=== PATIENT | female | born 1985 | race Caucasian/White ===

== ENCOUNTER 2017-05-05 10:24 | Emergency (ER) | payer BC, OTHER ==
[2017-05-05 11:37] LABS: Urine Appearance Slightly Cloudy; Urine Bacteria TRACE; Urine Bilirubin Negative (NEGATIVE); Urine Blood Negative /ul (NEGATIVE); Urine Color Pale Yellow; Urine Ketone Negative (NEGATIVE); Urine Nitrite Negative (NEGATIVE); Urine Protein Negative (NEGATIVE); Urine RBC None Seen /hpf (0-5); Urine Specific Gravity <=1.005 SP.GR. (1.005-1.010); Urine Urobilinogen Normal (NORMAL); Urine WBC None Seen /hpf (0-5); Urine pH 6.5 pH (5.0-7.0)
[2017-05-05] MEDS ORDERED: SUCRALFATE 1 G/10 ML UDC PO ONE (11:37)
[2017-05-05] MEDS ORDERED: LIDOCAINE HCL 20 ML UDC PO ONE (11:37)
[2017-05-05] MEDS ORDERED: MAG HYDROX/ALUMINUM HYD/SIMETH 30 ML UDC PO ONE (11:37)
--- NOTE | 2017-05-05 11:42 | ERNOTE ---
Abdominal HPI - Narrative Date of Service: 05/05/17 - General Chief Complaint: Abdominal Pain Time Seen by Provider: 05/05/17 11:30 Source: patient Exam Limitations: no limitations - Immun/Allergies/Home Medications Immunizatons: IMMUNIZATION HX Immunizations Up to Date Yes History of Influenza Vaccine No Hx Pneumococcal Vaccination No Allergies/Adverse Reactions: Allergies ciprofloxacin [From Cipro] Allergy (Severe, Verified 05/05/17 10:53) Anaphylaxis duloxetine [From Cymbalta] Adverse Reaction (Severe, Verified 05/05/17 10:53) Other Home Medications: HOME MEDICATIONS Desmopressin Acetate [Ddavp] 0.1 mg PO DAILY 05/05/17 [Last Taken Unknown] Florinef 05/05/17 [Last Taken Unknown] Lansoprazole/Amoxiciln/Clarith [Prevpac Patient Pack] 1 pkt PO BID #28 pkg 05/05 [Last Taken Unknown] Zantac 05/05/17 [Last Taken Unknown] Zyrtec 05/05/17 [Last Taken Unknown] - History of Present Illness Narrative: Pt. comes in with c/o mid upper epigastric pain intermittently for months that is worse after eating certain foods an at night and early am. Pt. states that the pain improves throughout the day. Pt. states that she has been taking zantac without relief and denies any fever, SOB, CP, NVD, constipation and states that LBM was today and it was normal for her. Review of Systems - Review of Systems Constitutional: Present: no symptoms reported. Absent: recent illness, fever, chills, weakness, fatigue, malaise EYE: Present: no symptoms reported ENT: Present: no symptoms reported Respiratory: Present: no symptoms reported. Absent: shortness of breath, cough , wheezing Cardiology: Present: no symptoms reported. Absent: chest pain, palpitations, edema Gastrointestinal/Abdominal: Present: abdominal pain. Absent: nausea, vomiting, diarrhea, eating less, drinking less Genitourinary: Present: no symptoms reported. Absent: frequency, decreased urinary output Musculoskeletal: Present: no symptoms reported. Absent: back pain, joint pain Skin: Present: no symptoms reported Neurological: Present: no symptoms reported. Absent: headache, dizziness/light- headedness Endocrine: Present: no symptoms reported All Other Systems: All systems neg except as marked - Patient's Past Medical History Patient History - Medical: No pertinent hx Patient History - Cancer: No Hx of Cancer Patient History - Other: None - Social History Living Situations: home Psych History: No pertinent hx Smoking Status: Never smoker Have you smoked in the past 12 months: No Do you dip or chew tobacco: No - Immunizations Immunizations Up to Date: Yes Hx Pneumococcal Vaccination: No History of Influenza Vaccine: No Physical Exam - Physical Exam General Appearance: Present: wd/wn, alert, no apparent distress Head Exam: Present: normal inspection, no evidence of injury Eye Exam: Normal inspection: bilateral, PERRL: bilateral, EOMI: bilateral Ears, Nose, Throat: Present: normal ENT inspection, normal pharynx Neck: Present: normal inspection, nontender. Absent: lymphadenopathy (R), lymphadenopathy (L) Respiratory: Present: no respiratory distress, normal breath sounds, no accessory muscle use, chest nontender, lungs clear Cardiovascular/Chest: Present: regular rate, rhythm, no murmur, normal peripheral pulses Gastrointestinal/Abdominal: Present: nondistended, soft, no organomegaly, tenderness - mid upper epigastric. Absent: mass, hernia Extremity Exam: Present: normal inspection, non-tender, normal range of motion, no edema Neurological Exam: Present: alert, oriented, normal mood/affect, no motor/ sensory deficits Skin Exam: Present: normal color, warm/dry. Absent: pallor, skin rash ED Progress - Date and Time Seen: Date and Time: 05/05/17 12:08 Feel that pt. likely has PUD and that she needs prev pack in addition to zantac and will have her follow up with PCP for further testing. - Results and Orders Patient's Lab Results:: I have reviewed the patient's lab results. - Vital Signs Patient's Vital Signs:: I have reviewed the patient's vital signs. Vital Signs: Vital Signs 05/05/17 10:55 Temperature 37.1 C Pulse Rate 71 Respiratory 16 Rate Blood Pressure 117/75 O2 Sat by Pulse 100 Oximetry - X-Ray X-Ray #1 X-Ray: abdomen Interpretation: Reviewed by me X-ray Comments: non specific bowel gas pattern. - Progress/Reassessment Chief Complaint: Abdominal Pain Progress:: Improved Departure Clinical Impression: Peptic ulcer disease - Departure Disposition: Home self-care Condition: Good Instructions: Peptic Ulcer, [id number] Additional Instructions: Please follow up with primary provider in 2-3 days. Prescriptions: Lansoprazole/Amoxiciln/Clarith [Prevpac Patient Pack] 1 pkt PO BID #28 pkg
[2017-05-05 11:47] LABS: Hematocrit 40.2 % (37.0-47.0); Hemoglobin 13.9 gm/dL (12.5-16.0); Mean Cell Volume 89.7 fl (78-100); Mean Corpuscular Hgb Conc 34.6 g/dl (32-36); Mean Platelet Volume 10.1 fl (6.0-9.5); Neutrophil # 5.8 K/mm3 (1.3-6.0); Neutrophil % 71.9 % (42-75.0); Platelet Count 215 K/mm3 (150-450); Red Blood Count 4.48 M/mm3 (4.2-5.4); Red Cell Distribution Width 12.4 % (11.5-14.0)
[2017-05-05 11:48] VITALS: BP 114/81
[2017-05-05 12:00] LABS: Albumin * 4.4 gm/dl (3.4-5.0); Anion Gap 14.7 mmol/L (6.8-13.8); BUN/Creatinine Ratio 11.9 (9.0-21.6); Bilirubin, Total 0.6 mg/dL (0.0-1.1); Ca. Corrected For Albumin 8.9 mg/dL (8.4-10.2); Calcium * 9.5 mg/dL (7.9-10.9); Carbon Dioxide 24.2 mmol/L (24-32.6); Potassium 3.9 mmol/L (3.4-4.6); Total Protein 7.9 gm/dL (6.2-8.2)
== END 2017-05-05 13:01 | disposition home or self-care (01) ==
LOC: ER 10:24
DX: K27.9 Peptic ulcer, site unspecified, unspecified as acute or chronic, without hemorrhage or perforation (principal)

== ENCOUNTER 2017-08-26 14:52 | Emergency (ER) | payer BC ==
[2017-08-26] MEDS ORDERED: KETOROLAC TROMETHAMINE 60 MG/2 ML VIAL IM ONE ×2 (15:30→15:47)
[2017-08-26 15:47] LABS: Hematocrit 37.5 % (37.0-47.0); Hemoglobin 12.8 gm/dL (12.5-16.0); Mean Cell Volume 89.7 fl (78-100); Mean Corpuscular Hemoglobin 30.6 pg (27-31); Mean Corpuscular Hgb Conc 34.1 g/dl (32-36); Mean Platelet Volume 10.5 fl (6.0-9.5); Neutrophil # 9.3 K/mm3 (1.3-6.0); Neutrophil % 83.7 % (42-75.0); Platelet Count 232 K/mm3 (150-450); Red Blood Count 4.18 M/mm3 (4.2-5.4); Red Cell Distribution Width 13.1 % (11.5-14.0); White Blood Count 11.1 K/mm3 (4.0-10.5)
[2017-08-26 15:57] LABS: ALT 19 U/L (19-67); AST 14 U/L (0-48); Albumin * 4.1 gm/dl (3.4-5.0); Alkaline Phosphatase * 51 U/L (50-170); Anion Gap 13.9 mmol/L (6.8-13.8); BUN/Creatinine Ratio 15.9 (9.0-21.6); Bilirubin, Total 0.4 mg/dL (0.0-1.1); Blood Urea Nitrogen 14 mg/dL (3-23); Ca. Corrected For Albumin 8.6 mg/dL (8.4-10.2); Carbon Dioxide 25.8 mmol/L (24-32.6); Chloride 103 mmol/L (97-106); Glucose * 94 mg/dL (70-110); Potassium 3.7 mmol/L (3.4-4.6); Sodium 139 mmol/L (132-142); Total Protein 7.1 gm/dL (6.2-8.2)
[2017-08-26 16:11] LABS: Urine Appearance Clear; Urine Bacteria TRACE; Urine Bilirubin Negative (NEGATIVE); Urine Blood Negative /ul (NEGATIVE); Urine Color Yellow; Urine Ketone Large mg/dL (NEGATIVE); Urine Nitrite Negative (NEGATIVE); Urine Protein Negative (NEGATIVE); Urine RBC None Seen /hpf (0-5); Urine Specific Gravity 1.025 SP.GR. (1.005-1.010); Urine Urobilinogen Normal (NORMAL); Urine WBC 0-5 /hpf (0-5)
--- NOTE | 2017-08-26 16:28 | ERNOTE ---
Abdominal HPI - Narrative Date of Service: 08/26/17 - General Chief Complaint: Urinary Tract Problems Time Seen by Provider: 08/26/17 15:19 Source: patient, RN notes reviewed Exam Limitations: no limitations - Immun/Allergies/Home Medications Immunizatons: IMMUNIZATION HX Immunizations Up to Date Yes History of Influenza Vaccine No Hx Pneumococcal Vaccination No Allergies/Adverse Reactions: Allergies ciprofloxacin [From Cipro] Allergy (Severe, Verified 08/26/17 15:01) Anaphylaxis duloxetine [From Cymbalta] Adverse Reaction (Severe, Verified 08/26/17 15:01) Other Home Medications: HOME MEDICATIONS Desmopressin Acetate [Ddavp] 0.1 mg PO DAILY 05/05/17 [Last Taken Unknown] Florinef 05/05/17 [Last Taken Unknown] Lansoprazole/Amoxiciln/Clarith [Prevpac Patient Pack] 1 pkt PO BID #28 pkg 05/05 [Last Taken Unknown] Zantac 05/05/17 [Last Taken Unknown] Zyrtec 05/05/17 [Last Taken Unknown] - History of Present Illness Narrative: Adore is a 32 year old female who present to the ED for abdominal pain that began months ago. Her pain had been in her epigastric region all along, but last night she started having lower abdominal pain. She is also having pain in her lower back. She has no associated symptoms. The pain she had been having was treated as an ulcer, but she has never had an EGD. She has been taking ranitidine for sometime. She reports that it seems to help at times. Date (Duration): 08/25/17 Activities at Onset: none Prior Abdominal Problems: Present: similar symptoms Prior Treatment: Present: recently seen, treated by physician. Absent: currently on antibiotics Review of Systems - Review of Systems Constitutional: Absent: fever, chills EYE: Present: no symptoms reported ENT: Present: sore throat. Absent: ear pain, nose congestion Respiratory: Absent: shortness of breath, cough Cardiology: Absent: chest pain, palpitations Gastrointestinal/Abdominal: Present: abdominal pain, eating less, drinking less. Absent: nausea, vomiting, diarrhea, constipation Genitourinary: Absent: dysuria, hematuria Musculoskeletal: Present: back pain. Absent: neck pain, joint pain Skin: Absent: rash, lesions Neurological: Absent: headache, dizziness/light-headedness Endocrine: Present: no symptoms reported Hematologic/Lymphatic: Absent: easy bruising, easy bleeding Psych: Present: no symptoms reported - Patient's Past Medical History Patient History - Medical: GERD Patient History - Cardiac/Respiratory: No pertinent hx Patient History - Cancer: No Hx of Cancer Patient History - Surgical Procedures: Other, Orthopedic Patient History - Other: None LMP (Calendar): 08/16/17 - Social History Living Situations: home Abuse History: No History of abuse Psych History: No pertinent hx Smoking Status: Never smoker Have you smoked in the past 12 months: No Do you dip or chew tobacco: No Alcohol Use: none Drug Use: none - Immunizations Immunizations Up to Date: Yes Hx Pneumococcal Vaccination: No History of Influenza Vaccine: No Physical Exam - Physical Exam General Appearance: Present: alert, no apparent distress, thin, other - Well dressed and groomed Head Exam: Present: normal inspection Ears, Nose, Throat: Present: pharyngeal erythema - mild. Absent: pharyngeal swelling, tonsillar swelling, dry mucous membranes Neck: Present: normal inspection, nontender, supple. Absent: lymphadenopathy (R ), lymphadenopathy (L) Respiratory: Present: no respiratory distress, normal breath sounds, no accessory muscle use, lungs clear Cardiovascular/Chest: Present: regular rate, rhythm, no murmur Gastrointestinal/Abdominal: Present: normal bowel sounds, nondistended, soft, tenderness - diffuse. Absent: guarding, rebound, mass Back Exam: Present: no CVA tenderness, no vertebral tenderness Extremity Exam: Present: normal inspection, normal range of motion, no edema Neurological Exam: Present: alert, oriented, normal mood/affect, no motor/ sensory deficits Skin Exam: Present: normal color, warm/dry ED Progress - Results and Orders Patient's Lab Results:: I have reviewed the patient's lab results. - Vital Signs Patient's Vital Signs:: I have reviewed the patient's vital signs. Vital Signs: Vital Signs 08/26/17 14:56 Temperature 36.6 C Pulse Rate 95 Respiratory 20 Rate Blood Pressure 130/100 O2 Sat by Pulse 99 Oximetry - X-Ray X-Ray #1 X-Ray: abdomen Interpretation: Interp. by me X-ray Comments: Nonobstructive bowel gas pattern with moderate fecal retention - Progress/Reassessment Chief Complaint: Urinary Tract Problems Progress:: Improved Departure Clinical Impression: Abdominal pain in female patient - Departure Disposition: Home Follow Up Needed Condition: Stable Instructions: Abdominal Pain, Adult, [id number] Additional Instructions: Drink entire of magnesium citrate Return to ER if pain does not improve or gets worse, otherwise follow-up with your PCP regarding further testing/GI referral
[2017-08-26] MEDS ORDERED: MAGNESIUM CITRATE 300 ML BTL PO ONE (17:06)
[2017-08-26] MEDS ORDERED: MAGNESIUM CITRATE 300 ML BTL ONE (17:25)
[2017-08-26 17:35] VITALS: BP 128/88
== END 2017-08-26 17:29 | disposition home or self-care (01) ==
LOC: ER 14:52
DX: R10.30 Lower abdominal pain, unspecified

== ENCOUNTER 2019-02-19 05:58 | Inpatient (IN) ==
[2019-02-19] MEDS ORDERED: RINGER'S SOLUTION,LACTATED 1,000 ML IV ONE (06:07)
[2019-02-19] MEDS ORDERED: OXYTOCIN/DEXTROSE 5%-WATER 30 UNITS/500 ML BAG IV ONE ×2 (06:07→09:54)
[2019-02-19] MEDS ORDERED: DEXTROSE 5%-LACTATED RINGERS 1,000 ML IV PRN (06:07)
[2019-02-19 06:43] LABS: Cocaine Ur Negative (NEGATIVE); Urine Barbiturate Negative (NEGATIVE); Urine Benzodiazepines Negative (NEGATIVE); Urine Opiates Negative (NEGATIVE); Urine PCP Negative (NEGATIVE); Urine THC Negative (NEGATIVE)
[2019-02-19] MEDS ORDERED: NALOXONE HCL 1 MG/1 ML SYRG IV PRN (07:13)
[2019-02-19] MEDS ORDERED: BUPIVACAINE HCL/0.9 % NACL/PF 250 ML EP PRN (07:13)
[2019-02-19] MEDS ORDERED: ONDANSETRON HCL/PF 2 MG/ML VIAL IV PRN (07:13)
[2019-02-19] MEDS ORDERED: fentaNYL CITRATE/PF 50 MCG/ML AMPUL IT SCH (07:15)
--- NOTE | 2019-02-19 08:10 | HP ---
Chief Complaint - Chief Complaint Date of Service: 02/19/19 Time of Service: 08:09 Chief Complaint: elective induction of labor History of Present Illness: 33 yo at 39 3/7 weeks presents for elective induction of labor. This complicated by anemia, h/o PTD, IBS, migraines, narcolepsy, Ehler Danlos syndrome, POTS, and PACs. Rh positive Rubella immune GBS negative Medical History (Updated 02/02/19 @ 23:19 by Nitza Malloy MD) History of delivery (Chronic) R/B/A of second dose of steroids discussed with the patient and the patient declines. She may stop her progesterone on Tuesday at 36 weeks Luis-Danlos syndrome (Chronic) Anemia (Resolved) w/pregnancies Influenza vaccination declined by patient (Acute) Onset Date: 08/21/18 (Acute) Peptic ulcer disease (Chronic) Onset Date: Unknown Abdominal pain in female patient (Acute) Onset Date: Unknown Tonsillopharyngitis (Acute) Onset Date: Unknown Hemorrhoids Onset Date: Unknown Hypotension POTS IBS (irritable bowel syndrome) Migraine with aura when she was using OCP Positive DM (antinuclear antibody) Onset Date: ~2014 EDS (Luis-Danlos syndrome) Narcolepsy Postural orthostatic tachycardia syndrome Thyroglossal duct cyst Abnormal Pap smear of cervix multiple last 2013 History of delivery Onset Date: ~2004 Delivered at 35weeks History of labor Onset Date: ~2004 31 weeks Ovarian cyst left Surgical History: Surgical History (Updated 12/28/18 @ 01:35 by Moe Hensley DO) H/O colposcopy with cervical biopsy x3 H/O oophorectomy Onset Date: ~2003 Left- Ovarian cyst rupture Family History: Family History (Updated 08/31/18 @ 12:03 by Whit Castaneda RN) Father DVT (deep venous thrombosis) Hypertension Grandfather DVT (deep venous thrombosis) CVA (cerebral vascular accident) Mother Hypertension Social History: (Last Reviewed 02/19/19 @ 08:14 by Moe Hensley DO) Social History: adopted: No residential: No Marital status: household members: children number of children: 3 parent marital status: current occupational status: employed 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 current occupational exposures/hazards: No Highest education level completed: some college, no degree Service: No Tobacco: Smoking Status: Never smoker Alcohol: alcohol intake: never Substance Use: substance use type: does not use Dietary Habits: caffeine: Yes caffeine comment: 1-2/day Exercise: frequency: 1-2 times per week Chel/Mosque: agree to transfusion: Yes Review Of Systems (GEN) - Review of Systems Generalized/Overall Review: Present: No Symptoms Reported EENTM: Present: No Symptoms Reported Respiratory: Present: No Symptoms Reported Cardiac: Present: Other - PACs earlier this am which resolved with her metoprolol. Abdominal: Present: Other - occasional contractions Genitourinary: Present: Other - vaginal pressure Musculoskeletal: Present: No Symptoms Reported Neurological: Present: Anxiety Skin: Present: No Symptoms Reported Endocrine: Present: No Symptoms Reported Immunizations: IMMUNIZATION HX Immunizations Up to Date Yes History of Influenza Vaccine No Hx Pneumococcal Vaccination No Allergies/Adverse Reactions: Allergies Allergy/AdvReac Type Severity Reaction Status Date / Time ciprofloxacin [From Cipro] Allergy Severe Anaphylaxis Verified 02/19/19 06:12 duloxetine [From Cymbalta] AdvReac Severe Other Verified 02/19/19 06:12 gluten AdvReac Intermediate Diarrhea Verified 02/19/19 06:39 Home Medications: HOME MEDICATIONS calcium carbonate 200 mg calcium (500 mg) chewable tablet 200 mg PO DAILY PRN tab 08/31/18 [Last Taken Unknown] ranitidine 150 mg tablet 150 mg PO BID 08/31/18 [Last Taken Unknown] ymfrenjm-rbr-ivowc acid 200 mcg-herbal no.245 37.5 mg chewable tablet 2 tab PO DAILY tab 10/30/18 [Last Taken Unknown] ferrous sulfate 325 mg (65 mg iron) tablet 325 mg PO DAILY #30 tab 11/29/18 [Last Taken Unknown] Acetaminophen [Tylenol] 650 mg PO PRN PRN 12/27/18 [Last Taken Unknown] potassium chloride ER 20 mEq tablet,extended release 20 meq PO BID #60 tab 01/26/19 [Last Taken Unknown] Metoprolol Succinate 12.5 mg PO BID 02/19/19 [Last Taken 02/19/19 12.5 mg] Exam - Exam Vital Signs: Vital Signs - Last Taken Temp 36.9 C 02/19/19 06:30 Pulse 84 02/19/19 06:30 Resp 14 02/19/19 06:30 BP 125/85 02/19/19 06:30 Pulse Ox 100 02/19/19 06:30 Constitutional: Present: Alert, Oriented x3, Cooperative, Other - mildly anxious ENT Exam: Present: hearing grossly normal Breasts: Present: Exam deferred Respiratory: Present: lungs clear, no respiratory distress Cardiovascular/Chest: Present: regular rate, rhythm, no edema Abdomen: Present: soft, nontender, no rebound tenderness, other - gravid /Rectal: Present: Other - cervix 5/75/0 Extremity: Present: no pedal edema, no calf tenderness Skin Exam: Present: normal color, warm/dry, no cyanosis Neurologic: Present: alert, normal mood/affect, oriented x 3 Appearance: Present: appropriate appearance, appropriate insight Eye contact: Present: cooperative, good eye contact Thoughts: Present: normal thought pattern, other - mildy anxious Diagnostic Studies: Laboratory Results Negative (NEGATIVE) 02/19/19 06:15 Negative (NEGATIVE) 02/19/19 06:15 Ur Phencyclidine Scrn Negative (NEGATIVE) 02/19/19 06:15 Urine Amphetamine Negative (NEGATIVE) 02/19/19 06:15 U Benzodiazepines Scrn Negative (NEGATIVE) 02/19/19 06:15 Negative (NEGATIVE) 02/19/19 06:15 Negative (NEGATIVE) 02/19/19 06:15 NST reactive Assessment/Plan - Assessment/Plan (1) Encounter for induction of labor Assessment: Admit for elective induction of labor. R/b/a to induction of labor discussed with patient in detail. All questions answered. Will proceed with pitocin induction of labor. Epidural PRN. Problem: Acute (2) POTS (postural orthostatic tachycardia syndrome) Problem: Acute (3) Luis-Danlos syndrome Problem: Chronic (4) Premature atrial contractions Problem: Acute (5) Migraines Problem: Acute Qualifiers: Migraine type: unspecified Status migrainosus presence: without status migrainosus (6) Anemia Problem: Resolved Qualifiers: Anemia type: iron deficiency Iron deficiency anemia type: inadequate dietary iron intake Qualified Code(s): D50.8 - Other iron deficiency anemias (7) IBS (irritable bowel syndrome) Problem: Chronic Qualifiers: Irritable bowel syndrome type: unspecified Qualified Code(s): K58.9 - Irritable bowel syndrome without diarrhea (8) History of delivery Problem: Chronic
--- NOTE | 2019-02-19 08:12 | PN ---
Progess Note - Interim Date: 02/19/19 Time: 08:10 Narrative: 02/19/19 08:10 Patient comfortable with epidural Vital signs stable. Pitocin at 3 mu/min. FHT: 125 baseline, reassuring contractions q 2-3 min Cervix: 8/90/0, AROM-clear Impression: Intrauterine at 39-3/7 weeks elective induction of labor Plan: Anticipate normal spontaneous vaginal delivery soon
--- NOTE | 2019-02-19 09:52 | OR ---
Operative Report - Dictated Report Narrative: Spontaneous vaginal delivery of vigorously crying viable female at 0938 on 02/19/2019 with Apgars 8 and 9, weighing 3207 g in SUSANNE position. Cord clamping delayed approximately 1 minute Placenta delivered complete, intact, with three vessel cord Estimated blood loss: Less than 50 ml Anesthesia: Epidural Lacerations: None
[2019-02-19] MEDS ORDERED: BENZOCAINE/MENTHOL 81 SPRAY CAN TP PRN (09:54)
[2019-02-19] MEDS ORDERED: HYDROCORTISONE 30 APPL TUBE TP PRN (09:54)
[2019-02-19] MEDS ORDERED: SENNOSIDES 8.6 MG TABLET PO PRN (09:54)
[2019-02-19] MEDS ORDERED: BISACODYL 10 MG SUPP.RECT RC PRN (09:54)
[2019-02-19] MEDS ORDERED: IBUPROFEN 800 MG TABLET PO PRN (09:54)
[2019-02-19] MEDS ORDERED: HYDROcodone/ACETAMINOPHEN 1 EACH TABLET PO PRN (09:54)
[2019-02-19] MEDS ORDERED: GLYCERIN/WITCH HAZEL LEAF 40 APPL BOX TP PRN (09:54)
[2019-02-19] MEDS ORDERED: CALCIUM CARBONATE 500 MG TAB.CHEW PO PRN (09:55)
[2019-02-19] MEDS: ACETAMINOPHEN 325 MG TABLET PO PRN ×2 (10:06→21:47)
--- NOTE | 2019-02-19 10:32 | ANES ---
Anesthesia Pre Procedure Eval Vitals/Labs: Last Vital Signs Temp 36.5 C 02/19/19 09:45 Pulse 87 02/19/19 10:14 Resp 14 02/19/19 10:14 BP 109/74 02/19/19 10:14 Pulse Ox 98 02/19/19 10:14 HOME MEDICATIONS calcium carbonate 200 mg calcium (500 mg) chewable tablet 200 mg PO DAILY PRN tab 08/31/18 [Last Taken Unknown] ranitidine 150 mg tablet 150 mg PO BID 08/31/18 [Last Taken Unknown] sthhxnid-mfz-fdpzf acid 200 mcg-herbal no.245 37.5 mg chewable tablet 2 tab PO DAILY tab 10/30/18 [Last Taken Unknown] ferrous sulfate 325 mg (65 mg iron) tablet 325 mg PO DAILY #30 tab 11/29/18 [Last Taken Unknown] Acetaminophen [Tylenol] 650 mg PO PRN PRN 12/27/18 [Last Taken Unknown] potassium chloride ER 20 mEq tablet,extended release 20 meq PO BID #60 tab 01/26/19 [Last Taken Unknown] RX: Metoprolol Succinate 12.5 mg PO BID 02/19/19 [Last Taken 02/19/19 12.5 mg] Allergies/Adverse Reactions: Allergies Allergy/AdvReac Type Severity Reaction Status Date / Time ciprofloxacin [From Cipro] Allergy Severe Anaphylaxis Verified 02/19/19 06:12 duloxetine [From Cymbalta] AdvReac Severe Other Verified 02/19/19 06:12 gluten AdvReac Intermediate Diarrhea Verified 02/19/19 06:39 - Planned Procedure Planned Procedure: ELECTIVE INDUCTION 39 WEEKS Medication List Reviewed:: Yes Allergies Verified: Yes Medical History (Updated 02/19/19 @ 10:31 by Rosaura Sebastian RN) History of delivery (Chronic) R/B/A of second dose of steroids discussed with the patient and the patient declines. She may stop her progesterone on Tuesday at 36 weeks Luis-Danlos syndrome (Chronic) Anemia (Resolved) w/pregnancies Influenza vaccination declined by patient (Acute) Onset Date: 08/21/18 (Acute) Peptic ulcer disease (Chronic) Onset Date: Unknown Abdominal pain in female patient (Acute) Onset Date: Unknown Tonsillopharyngitis (Acute) Onset Date: Unknown Hemorrhoids Onset Date: Unknown Hypotension POTS IBS (irritable bowel syndrome) Migraine with aura when she was using OCP Positive DM (antinuclear antibody) Onset Date: ~2014 EDS (Luis-Danlos syndrome) Narcolepsy Postural orthostatic tachycardia syndrome Thyroglossal duct cyst Abnormal Pap smear of cervix multiple last 2013 History of delivery Onset Date: ~2004 Delivered at 35weeks History of labor Onset Date: ~2004 31 weeks Ovarian cyst left Surgical History (Updated 12/28/18 @ 01:35 by Moe Hensley DO) H/O colposcopy with cervical biopsy x3 H/O oophorectomy Onset Date: ~2003 Left- Ovarian cyst rupture Family History (Updated 08/31/18 @ 12:03 by Whit Castaneda RN) Father DVT (deep venous thrombosis) Hypertension Grandfather DVT (deep venous thrombosis) CVA (cerebral vascular accident) Mother Hypertension - Family Anesthesia History Family History:: no untoward family reactions to anesthesia - Airway/Neck/Teeth Within Normal Limits:: Yes Teeth Condition: intact Neck Exam: full range of motion Mallampatti Score: 1 Thyromental (T-M) distance: > 6 cm Mandibulo Hyoid distance: > 3 cm - Respiratory Smoking Status: Never smoker Sleep Apnea currently treated: No Sleep Apnea by current assessment: No - Cardiovascular Tolerate Activity: Good Heart Sounds: S1 & S2, Regular - Anesthesia Assessment and Plan ASA Class: PS, II, E Anesthesia Type Plan: Epidural Planned difficult intubation/equipment available: No
--- NOTE | 2019-02-19 10:33 | ANES ---
Post Anesthesia Discharge - Transfer of Care Transfer of Care handoff given to nurse: Yes - Anesthesia Post Op Note Anesthesia Post Op Note: Care transferred to OB RN
--- NOTE | 2019-02-19 10:33 | ANES ---
Post Anesthesia Assessment - Vital Signs Vitals: Last Vital Signs Temp 36.5 C 02/19/19 09:45 Pulse 87 02/19/19 10:14 Resp 14 02/19/19 10:14 BP 109/74 02/19/19 10:14 Pulse Ox 98 02/19/19 10:14 Airway Patency: Normal - Mental Status Level Of Consciousness: Awake - Pain Level Pain Score: 2 - N/V Assessment Nausea/Vomiting Presence: None Dehydration:: No
--- NOTE | 2019-02-19 10:36 | ANES ---
Anesthesia Procedure Note Procedure Note: ANESTHESIA PROCEDURE NOTE Date of Procedure: 02/19/2019 Time of procedure: 02 06. Performed by: Ferny Eller CRNA Revival Clerk: None. Preprocedure diagnosis: Active labor. Post procedure diagnosis: Same. Procedure: Insertion of labor epidural. Indications: The patient is a 33-year-old multigravid female in active labor requesting labor epidural for pain management. Findings: See below. Details of the procedure: The patient was placed in a sitting position. Back was prepped with DuraPrep. Patient was then draped in a sterile fashion. Lidocaine 1% was infiltrated to the skin and subcutaneous tissues at the level of the L3 4 interspace. The epidural space was identified using a 18-gauge Tuohy needle with [id number] technique. Epidural catheter was inserted without difficulty. Negative test dose was elicited using 3 mL of 1.5% preservative- free lidocaine plus epinephrine 1 200,000. The epidural catheter was then taped and secured in place. EBL: Minimal. Fluids: N/A. Specimen: N/A. Post procedure condition: The patient tolerated the procedure well. No complications were noted. Thank you for this consultation. Neely CRNA
[2019-02-19] MEDS: DOCUSATE SODIUM 100 MG CAPSULE PO SCH (21:49)
[2019-02-19] MEDS: METOPROLOL SUCCINATE 25 MG TABLET.SA PO SCH ×2 (21:49→21:56)
[2019-02-20] MEDS: ACETAMINOPHEN 325 MG TABLET PO PRN ×2 (07:04→18:41)
[2019-02-20] MEDS: DOCUSATE SODIUM 100 MG CAPSULE PO SCH ×2 (10:13→21:06)
[2019-02-20] MEDS: FERROUS SULFATE 325 MG TABLET PO SCH (10:13)
[2019-02-20] MEDS: MULTIVITAMINS 1 TAB TAB.CHEW PO SCH (10:13)
[2019-02-20] MEDS: METOPROLOL TARTRATE 25 MG TABLET PO SCH ×2 (10:15→21:06)
--- NOTE | 2019-02-20 12:27 | PN ---
Subjective - Date and Time Seen Date: 02/20/19 Time: 12:26 Objective - Vitals Vitals: Last Vital Signs Temp 36.3 C 02/20/19 09:00 Pulse 72 02/20/19 10:15 Resp 14 02/20/19 09:00 BP 125/81 02/20/19 10:15 Pulse Ox 98 02/20/19 00:33 Patient denies complaints. Breast-feeding well Lochia wnl abdomen - soft, nontender Uterus -firm, at umbilicus - 1 no calf tenderness Impression: day #1 - s/p spontaneous vaginal delivery. Plan: Continue routine care Assessment/Plan - Problems/Diagnosis (1) Encounter for induction of labor Problem: Acute (2) POTS (postural orthostatic tachycardia syndrome) Problem: Acute (3) Luis-Danlos syndrome Problem: Chronic (4) Premature atrial contractions Problem: Acute (5) Migraines Problem: Acute Qualifiers: Migraine type: unspecified Status migrainosus presence: without status migrainosus (6) Anemia Problem: Resolved Qualifiers: Anemia type: iron deficiency Iron deficiency anemia type: inadequate dietary iron intake Qualified Code(s): D50.8 - Other iron deficiency anemias (7) IBS (irritable bowel syndrome) Problem: Chronic Qualifiers: Irritable bowel syndrome type: unspecified Qualified Code(s): K58.9 - Irritable bowel syndrome without diarrhea (8) History of delivery Problem: Chronic
[2019-02-21] MEDS: METOPROLOL TARTRATE 25 MG TABLET PO SCH (09:44)
[2019-02-21] MEDS: DOCUSATE SODIUM 100 MG CAPSULE PO SCH (09:44)
[2019-02-21 09:45] VITALS: BP 107/62
[2019-02-21] MEDS: FERROUS SULFATE 325 MG TABLET PO SCH (09:45)
[2019-02-21] MEDS: MULTIVITAMINS 1 TAB TAB.CHEW PO SCH (09:45)
--- NOTE | 2019-02-21 10:19 | PN ---
Subjective - Date and Time Seen Date: 02/21/19 Time: 10:17 Objective - Vitals Vitals: Last Vital Signs Temp 36.1 C 02/21/19 00:14 Pulse 80 02/21/19 09:44 Resp 18 02/21/19 00:14 BP 107/62 02/21/19 09:44 Pulse Ox 97 02/21/19 00:14 Patient complains of no bowel movement since delivery. Breast-feeding well Lochia wnl abdomen - soft, nontender Uterus -firm, at umbilicus - 2 no calf tenderness Impression: day #2 - s/p spontaneous vaginal delivery. Plan: Routine discharge instructions. Instructed patient to drink plenty of water, use stool softeners and soluble fiber supplement as needed. Assessment/Plan - Problems/Diagnosis (1) Encounter for induction of labor Problem: Acute (2) POTS (postural orthostatic tachycardia syndrome) Problem: Acute (3) Luis-Danlos syndrome Problem: Chronic (4) Premature atrial contractions Problem: Acute (5) Migraines Problem: Acute Qualifiers: Migraine type: unspecified Status migrainosus presence: without status migrainosus (6) Anemia Problem: Resolved Qualifiers: Anemia type: iron deficiency Iron deficiency anemia type: inadequate dietary iron intake Qualified Code(s): D50.8 - Other iron deficiency anemias (7) IBS (irritable bowel syndrome) Problem: Chronic Qualifiers: Irritable bowel syndrome type: unspecified Qualified Code(s): K58.9 - Irritable bowel syndrome without diarrhea (8) History of delivery Problem: Chronic
[2019-02-21] MEDS: ACETAMINOPHEN 325 MG TABLET PO PRN (10:55)
--- NOTE | 2019-02-22 19:53 | PN ---
Progess Note - Interim Date: 02/19/19 Time: 12:00 History for MU History for MU Definition: * The number of deliveries resulting in a live the patient experienced prior to current hospitalization * The previous delivery of live twins or any live multiple gestation is considered one live event. *If primagravida or nulliparous is documented select zero for the number of previous live births. Live Events: Live Events: 3
== END 2019-02-21 15:00 | disposition home or self-care (01) | DRG 806 ==
LOC: OB 05:58 → MS 02-20 20:36
PROVIDERS: ADMIT Obstetrics & Gynecology; ATTEND Obstetrics & Gynecology
CPT/HCPCS: 59025; 80307

== ENCOUNTER 2019-02-23 20:57 | Inpatient (IN) ==
--- NOTE | 2019-02-23 21:23 | ERNOTE ---
Medical Problem HPI - Narrative Date of Service: 02/23/19 - General Chief Complaint: General Assessment Time Seen by Provider: 02/23/19 21:15 Source: patient - Immun/Allergies/Home Medications Immunizations: IMMUNIZATION HX Immunizations Up to Date Yes History of Influenza Vaccine No Hx Pneumococcal Vaccination No Allergies/Adverse Reactions: Allergies ciprofloxacin [From Cipro] Allergy (Severe, Verified 02/23/19 21:04) Anaphylaxis duloxetine [From Cymbalta] Adverse Reaction (Severe, Verified 02/23/19 21:04) Other gluten Adverse Reaction (Intermediate, Verified 02/23/19 21:04) Diarrhea nausea, bloating Home Medications: HOME MEDICATIONS calcium carbonate 200 mg calcium (500 mg) chewable tablet 200 mg PO DAILY PRN tab 08/31/18 [Last Taken Unknown] upsoogxs-yec-vbxvx acid 200 mcg-herbal no.245 37.5 mg chewable tablet 2 tab PO DAILY tab 10/30/18 [Last Taken Unknown] ferrous sulfate 325 mg (65 mg iron) tablet 325 mg PO DAILY #30 tab 11/29/18 [Last Taken Unknown] Acetaminophen [Tylenol] 650 mg PO PRN PRN 12/27/18 [Last Taken Unknown] potassium chloride ER 20 mEq tablet,extended release 20 meq PO BID #60 tab 01/26/19 [Last Taken Unknown] Metoprolol Succinate 12.5 mg PO BID 02/19/19 [Last Taken 02/19/19 12.5 mg] Ibuprofen [Motrin] 200 - 800 mg PO Q6H PRN #100 tab 02/20/19 [Last Taken Unknown] Metoprolol Tartrate [Lopressor] 6.25 mg PO BID tab 02/20/19 [Last Taken Unknown] breast pump See Dose Instructions .ROUTE .MEDSUPPLY #1 ea 02/21/19 [Last Taken Unknown] - History of Present History Narrative: This is a 33-year-old female G4, P4 4 days from a normal uneventful vaginal delivery at 39 weeks. Child is doing well. Mother went home in the second day. Mother did have some problems with tachycardia during but no blood pressure issues. She was on metoprolol. Mother says that today she started having a diffuse headache which was different in characteristics to her normal headaches. She cannot really explain how it was different she just says it was quite different. She felt very energized today. She is felt kind of lethargic and dragging prior to this. She has been complaining of a bit of a low back pain in the area where she had her epidural. No fever or neck stiffness. This afternoon she went and had her blood pressure checked and noted that it was elevated on the order of 150/100. She talked to the INSURANCE CLAIM AUDITOR and they sent her in. Patient has not had any tremors. She has not had a seizure. She has a little bit of dizziness. No blurred vision. No difficulty swallowing, chest pain, shortness of breath. No other complaints. Never had preeclampsia or eclampsia with any of the other pregnancies Review of Systems - Review of Systems Constitutional: Present: other - Increased energy today EYE: Present: no symptoms reported ENT: Present: no symptoms reported Respiratory: Present: no symptoms reported Cardiology: Present: no symptoms reported Gastrointestinal/Abdominal: Present: no symptoms reported Genitourinary: Present: no symptoms reported Musculoskeletal: Present: no symptoms reported Skin: Present: no symptoms reported Neurological: Present: headache, dizziness/light-headedness Endocrine: Present: no symptoms reported Hematologic/Lymphatic: Present: no symptoms reported Psych: Present: no symptoms reported All Other Systems: All systems neg except as marked Medical History (Updated 02/19/19 @ 10:31 by Rosaura Sebastian RN) History of delivery (Chronic) R/B/A of second dose of steroids discussed with the patient and the patient declines. She may stop her progesterone on Tuesday at 36 weeks Luis-Danlos syndrome (Chronic) Anemia (Resolved) w/pregnancies Influenza vaccination declined by patient (Acute) Onset Date: 08/21/18 (Acute) Peptic ulcer disease (Chronic) Onset Date: Unknown Abdominal pain in female patient (Acute) Onset Date: Unknown Tonsillopharyngitis (Acute) Onset Date: Unknown Hemorrhoids Onset Date: Unknown Hypotension POTS IBS (irritable bowel syndrome) Migraine with aura when she was using OCP Positive DM (antinuclear antibody) Onset Date: ~2014 EDS (Luis-Danlos syndrome) Narcolepsy Postural orthostatic tachycardia syndrome Thyroglossal duct cyst Abnormal Pap smear of cervix multiple last 2013 History of delivery Onset Date: ~2004 Delivered at 35weeks History of labor Onset Date: ~2004 31 weeks Ovarian cyst left Surgical History: Surgical History (Updated 06/20/19 @ 01:35 by Moe Hensley DO) H/O colposcopy with cervical biopsy x3 H/O oophorectomy Onset Date: ~2003 Left- Ovarian cyst rupture Family History: Family History (Updated 08/31/18 @ 12:03 by Whit Castaneda RN) Father DVT (deep venous thrombosis) Hypertension Grandfather DVT (deep venous thrombosis) CVA (cerebral vascular accident) Mother Hypertension Social History: (Last Reviewed 02/23/19 @ 21:04 by Florecita Tompkins RN) Social History: adopted: No residential: No Marital status: household members: children number of children: 3 parent marital status: current occupational status: employed 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 current occupational exposures/hazards: No Highest education level completed: some college, no degree Service: No Tobacco: Smoking Status: Never smoker Alcohol: alcohol intake: never Substance Use: substance use type: does not use Dietary Habits: caffeine: Yes caffeine comment: 1-2/day Exercise: frequency: 1-2 times per week Chel/Mandaen: agree to transfusion: Yes Physical Exam - Physical Exam General Appearance: Present: wd/wn, alert, no apparent distress Head Exam: Present: normal inspection, no evidence of injury Eye Exam: Normal inspection: bilateral, PERRL: bilateral, EOMI: bilateral Ears, Nose, Throat: Present: normal ENT inspection, normal pharynx Neck: Present: normal inspection, nontender Respiratory: Present: no respiratory distress, normal breath sounds, chest nontender, lungs clear Cardiovascular/Chest: Present: regular rate, rhythm, no murmur Gastrointestinal/Abdominal: Present: normal bowel sounds, nondistended, soft Back Exam: Present: normal inspection, normal range of motion Extremity Exam: Present: normal inspection, non-tender, normal range of motion, no edema Neurological Exam: Present: alert, oriented, normal mood/affect, no motor/sensory deficits, other - Patient is a bit hyperreflexive. I would say 3+ in patellar. No clonus at the ankle. 3-4+ in the biceps Skin Exam: Present: normal color, warm/dry Lymphatic Exam: Present: no adenopathy Progress - Vital Signs Patient's Vital Signs:: I have reviewed the patient's vital signs. Vital Signs: Vital Signs 02/23/19 21:01 02/23/19 21:04 Temperature 36.3 C Pulse Rate 79 90 Respiratory Rate 18 Blood Pressure 150/101 H 145/102 H O2 Sat by Pulse Oximetry 99 100 - Progress/Reassessment Chief Complaint: General Assessment Plan - Plan Plan: Immediately upon seeing the patient I called the OB on-call, Dr. Rose. I went over the patient's physical findings and vital signs. Dr. Rose agrees that the patient is likely suffering from preeclampsia. Dr. Rose has graciously agreed that she will write all of the orders for labs and tests and magnesium. She has requested that we place the patient on OB. OB has more experience dealing with the eclampsia and magnesium drips. I have placed the patient in for an admission. I am not putting in for any orders here. Departure Clinical Impression: Preeclampsia Qualifiers: Trimester: unspecified trimester Qualified Code(s): O14.90 - Unspecified pre- eclampsia, unspecified trimester - Departure Disposition: Still a patient Condition: Stable Referrals: Korina Merino MD [Primary Care Provider] -
[2019-02-23] MEDS ORDERED: CALCIUM GLUCONATE 4.65 MEQ/10 ML VIAL IV PRN (21:37)
[2019-02-23] MEDS ORDERED: LABETALOL HCL 5 MG/ML VIAL IV PRN (21:37)
[2019-02-23] MEDS ORDERED: DIAZEPAM 5 MG/ML SYRG IV PRN (21:37)
[2019-02-23] MEDS ORDERED: RINGER'S SOLUTION,LACTATED 1,000 ML IV PRN (21:37)
[2019-02-23 21:55] LABS: Hematocrit 37.5 % (37.0-47.0); Hemoglobin 12.4 gm/dL (12.5-16.0); Mean Cell Volume 96.6 fl (78-100); Mean Corpuscular Hgb Conc 33.1 g/dl (32-36); Mean Platelet Volume 9.8 fl (8-12.5); Neutrophil # 6.3 K/mm3 (1.3-6.0); Neutrophil % 66.9 % (42-75.0); Platelet Count 186 K/mm3 (150-450); Red Blood Count 3.88 M/mm3 (4.2-5.4); Red Cell Distribution Width 14.5 % (11.5-14.0); White Blood Count 9.5 K/mm3 (4.0-10.5)
[2019-02-23 22:10] LABS: Albumin * 3.1 gm/dl (3.4-5.0); Anion Gap 13.1 mmol/L (6.8-13.8); BUN/Creatinine Ratio 12.5 (9.0-21.6); Bilirubin, Total 0.2 mg/dL (0.0-1.1); Ca. Corrected For Albumin 9.1 mg/dL (8.4-10.2); Calcium * 8.7 mg/dL (7.9-10.9); Carbon Dioxide 26.3 mmol/L (24-32.6); Potassium 3.4 mmol/L (3.4-4.6); Total Protein 6.9 gm/dL (6.2-8.2)
[2019-02-23 22:37] LABS: Random Urine Total Protein Less than 6.0 mg/dL (0-12)
[2019-02-23] MEDS ORDERED: ACETAMINOPHEN 500 MG TABLET PO ONE (22:48)
[2019-02-23] MEDS: MAGNESIUM SULFATE IN WATER 50 ML IV ONE (22:56)
[2019-02-24] MEDS ORDERED: MAGNESIUM SULFATE IN WATER 1,000 ML IV PRN
[2019-02-24] MEDS: MAGNESIUM SULFATE IN WATER 50 ML IV ONE (00:24)
--- NOTE | 2019-02-24 09:49 | HP ---
Chief Complaint - Chief Complaint Date of Service: 02/24/19 Time of Service: 09:31 Chief Complaint: high blood pressure, headache History of Present Illness: 33 year old PPD 5 s/p who was checking her blood pressure at home and had elevated blood pressure at home. She presented to the emergency department due to her hypertension and also she complained of a headache. She received a gram of tylenol and her headache improved significantly. This morning the patient is tired and sleepy and does report a headache but falls immediately asleep. She denies visual changes and abdominal pain. Medical History (Updated 02/23/19 @ 21:23 by Az Chaney MD) History of delivery (Chronic) R/B/A of second dose of steroids discussed with the patient and the patient declines. She may stop her progesterone on Tuesday at 36 weeks Luis-Danlos syndrome (Chronic) Anemia (Resolved) w/pregnancies Influenza vaccination declined by patient (Acute) Onset Date: 08/21/18 (Acute) Peptic ulcer disease (Chronic) Onset Date: Unknown Abdominal pain in female patient (Acute) Onset Date: Unknown Tonsillopharyngitis (Acute) Onset Date: Unknown Hemorrhoids Onset Date: Unknown Hypotension POTS IBS (irritable bowel syndrome) Migraine with aura when she was using OCP Positive DM (antinuclear antibody) Onset Date: ~2014 EDS (Luis-Danlos syndrome) Narcolepsy Postural orthostatic tachycardia syndrome Thyroglossal duct cyst Abnormal Pap smear of cervix multiple last 2013 History of delivery Onset Date: ~2004 Delivered at 35weeks History of labor Onset Date: ~2004 31 weeks Ovarian cyst left Surgical History: Surgical History (Updated 12/28/18 @ 01:35 by Moe Hensley DO) H/O colposcopy with cervical biopsy x3 H/O oophorectomy Onset Date: ~2003 Left- Ovarian cyst rupture Family History: Family History (Updated 08/31/18 @ 12:03 by Whit Castaneda RN) Father DVT (deep venous thrombosis) Hypertension Grandfather DVT (deep venous thrombosis) CVA (cerebral vascular accident) Mother Hypertension Social History: (Last Updated 02/24/19 @ 09:36 by Sadaf Rose MD) Social History: adopted: No senior living: No Marital status: household members: children number of children: 4 parent marital status: current occupational status: employed 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 current occupational exposures/hazards: No Highest education level completed: some college, no degree Service: No Tobacco: Smoking Status: Never smoker Alcohol: alcohol intake: never Substance Use: substance use type: does not use Dietary Habits: caffeine: Yes caffeine comment: 1-2/day Exercise: frequency: 1-2 times per week Chel/Pentecostalism: agree to transfusion: Yes Review Of Systems (GEN) - Review of Systems Generalized/Overall Review: Present: No Symptoms Reported Neurological: Present: Headache Misc: All systems neg except as marked Immunizations: IMMUNIZATION HX Immunizations Up to Date Yes History of Influenza Vaccine No Hx Pneumococcal Vaccination No Allergies/Adverse Reactions: Allergies Allergy/AdvReac Type Severity Reaction Status Date / Time ciprofloxacin [From Cipro] Allergy Severe Anaphylaxis Verified 02/23/19 22:28 duloxetine [From Cymbalta] AdvReac Severe Other Verified 02/23/19 22:28 gluten AdvReac Intermediate Diarrhea Verified 02/23/19 22:28 Home Medications: HOME MEDICATIONS calcium carbonate 200 mg calcium (500 mg) chewable tablet 200 mg PO DAILY PRN tab 08/31/18 [Last Taken Unknown] exlatuku-hui-webwu acid 200 mcg-herbal no.245 37.5 mg chewable tablet 2 tab PO DAILY tab 10/30/18 [Last Taken Unknown] ferrous sulfate 325 mg (65 mg iron) tablet 325 mg PO DAILY #30 tab 11/29/18 [Last Taken 02/22/19] Acetaminophen [Tylenol] 650 mg PO PRN PRN 12/27/18 [Last Taken 02/22/19] potassium chloride ER 20 mEq tablet,extended release 20 meq PO BID #60 tab 01/26/19 [Last Taken Unknown] Ibuprofen [Motrin] 200 - 800 mg PO Q6H PRN #100 tab 02/20/19 [Last Taken Unknown] Metoprolol Tartrate [Lopressor] 6.25 mg PO BID tab 02/20/19 [Last Taken 02/23/19] breast pump See Dose Instructions .ROUTE .MEDSUPPLY #1 ea 02/21/19 [Last Taken Unknown] Exam - Exam Vital Signs: Vital Signs - Last Taken Temp 35.4 C L 02/24/19 07:00 Pulse 73 02/24/19 09:04 Resp 16 02/24/19 09:04 BP 104/67 02/24/19 09:04 Pulse Ox 100 02/24/19 09:04 Constitutional: Present: Alert, Oriented x3, Cooperative Breasts: Present: Exam deferred Respiratory: Present: lungs clear, normal breath sounds Cardiovascular/Chest: Present: regular rate, rhythm, no murmur Abdomen: Present: soft, nontender, nondistended - fundus is firm Extremity: Present: non-tender, no calf tenderness Skin Exam: Present: normal color, warm/dry, no cyanosis Appearance: Present: appropriate appearance Eye contact: Present: cooperative Thoughts: Present: normal thought pattern Diagnostic Studies: Abnormal Lab Results 02/23/19 02/23/19 02/23/19 Range/Units 21:50 21:50 22:10 RBC 3.88 L (4.2-5.4) M/mm3 Hgb 12.4 L (12.5-16.0) gm/dL MCH 32.0 H (27-31) pg RDW 14.5 H (11.5-14.0) % Immature Gran % (Auto) 0.90 H (0.001-0.429) % Immature Gran # (Auto) 0.09 H (0.000-0.0310) K/mm3 Neutrophils # 6.3 H (1.3-6.0) K/mm3 Albumin 3.1 L (3.4-5.0) gm/dl Ur Random Creatinine 27.2 L (60-200) mg/dL U [place] Prot/Creat Ratio 221 H (0-199) mg/gm Laboratory Results WBC 9.5 K/mm3 (4.0-10.5) 02/23/19 21:50 RBC 3.88 M/mm3 (4.2-5.4) L 02/23/19 21:50 Hgb 12.4 gm/dL (12.5-16.0) L 02/23/19 21:50 Hct 37.5 % (37.0-47.0) 02/23/19 21:50 MCV 96.6 fl (78-100) 02/23/19 21:50 MCH 32.0 pg (27-31) H 02/23/19 21:50 MCHC 33.1 g/dl (32-36) 02/23/19 21:50 RDW 14.5 % (11.5-14.0) H 02/23/19 21:50 Plt Count 186 K/mm3 (150-450) 02/23/19 21:50 MPV 9.8 fl (8-12.5) 02/23/19 21:50 Immature Gran % (Auto) 0.90 % (0.001-0.429) H 02/23/19 21:50 Immature Gran # (Auto) 0.09 K/mm3 (0.000-0.0310) H 02/23/19 21:50 66.9 % (42-75.0) 02/23/19 21:50 25.4 % (20-51) 02/23/19 21:50 4.6 % (0.0-9) 02/23/19 21:50 1.8 % (0.0-3.0) 02/23/19 21:50 0.4 % (0.0-1.0) 02/23/19 21:50 Nucleated RBC % 0.0 k/mm3 (0-1) 02/23/19 21:50 6.3 K/mm3 (1.3-6.0) H 02/23/19 21:50 2.41 k/mm3 (1.5-3.5) 02/23/19 21:50 0.4 k/mm3 (0.0-1.0) 02/23/19 21:50 0.2 k/mm3 (0.0-0.7) 02/23/19 21:50 Absolute Basophils 0.0 k/mm3 (0.0-0.1) 02/23/19 21:50 Sodium 141 mmol/L (132-142) 02/23/19 21:50 141 mmol/L (130-142) 02/23/19 21:50 Potassium 3.4 mmol/L (3.4-4.6) 02/23/19 21:50 Chloride 105 mmol/L (97-106) 02/23/19 21:50 Carbon Dioxide 26.3 mmol/L (24-32.6) 02/23/19 21:50 13.1 mmol/L (6.8-13.8) 02/23/19 21:50 BUN 8 mg/dL (3-23) D 02/23/19 21:50 0.64 mg/dL (0.4-1.4) 02/23/19 21:50 Est GFR (Non-Af Amer) 115 mL/min (60-130) 02/23/19 21:50 12.5 (9.0-21.6) 02/23/19 21:50 84 mg/dL (70-110) 02/23/19 21:50 Calcium 8.7 mg/dL (7.9-10.9) 02/23/19 21:50 Calcium Adj for Albumin 9.1 mg/dL (8.4-10.2) 02/23/19 21:50 0.2 mg/dL (0.0-1.1) 02/23/19 21:50 AST 47 U/L (0-48) 02/23/19 21:50 ALT 54 U/L (19-67) 02/23/19 21:50 107 U/L (50-170) 02/23/19 21:50 6.9 gm/dL (6.2-8.2) 02/23/19 21:50 3.1 gm/dl (3.4-5.0) L 02/23/19 21:50 Ur Random Creatinine 27.2 mg/dL (60-200) L 02/23/19 22:10 U Random Total Protein Less than 6.0 mg/dL (0-12) 02/23/19 22:10 U [place] Prot/Creat Ratio 221 mg/gm (0-199) H 02/23/19 22:10 Assessment/Plan - Narrative Narrative: PPD 5 s/p with hypertension The patient's blood pressures are low now and thus will discontinue magnesium and observe her BPs every 2 hours. If her blood pressures are controlled on the magnesium then she will be discharged this afternoon Headache: the patient reports a headache but falls immediately asleep. Sleep deprivation is contributing to the patient's headache hypertension: there is likely a very strong component of anxiety as the cause of the patient's blood pressure elevation. I reviewed the patient's record and she had one single elevated diastolic blood pressure of 91 with normal labs during . Repeat labs are stable. I have instructed the patient to stop checking her blood pressures as I see a vicious cycle of anxiety. Anxiety: the patient reports she has not had a good experience with SSRIs. She has being on multiple SSRIs. I explained to the patient that SSRIs are the best treatment for anxiety. I would recommend sertraline because the patient is . The patient reports a paradoxical reaction to sertraline where she had increased panic attacks. The patient is counseled that this is a normal reaction and that the first two weeks after starting SSRIs there could be an increase in anxiety which will then improve significantly. The patient declines therapy at this time. I did explain to her that given her multiple attempts at taking SSRIs in the past and the fact that she is she will likely need to see Psychiatry for management of her anxiety. The patient has been noncompliant throughout her declining medications and adjusting her own doses of medications. Since the patient is scheduled to see Dr. Hensley on Tuesday she can discuss this further with him and her blood pressure could be reassessed at that time. - Assessment/Plan (1) Anxiety Problem: Acute (2) hypertension Problem: Acute (3) Headache Problem: Acute (4) Normal vaginal delivery Problem: Acute
--- NOTE | 2019-02-24 09:56 | PN ---
Progess Note - Interim Date: 02/24/19 Time: 09:55 Narrative: 02/24/19 09:55 Patient complaining of double vision which could be a sign of magnesium toxicity. Stat mag level, CBC, CMP
[2019-02-24 10:12] LABS: Hematocrit 40.8 % (37.0-47.0); Hemoglobin 13.6 gm/dL (12.5-16.0); Mean Cell Volume 95.3 fl (78-100); Mean Corpuscular Hemoglobin 31.8 pg (27-31); Mean Corpuscular Hgb Conc 33.3 g/dl (32-36); Mean Platelet Volume 9.8 fl (8-12.5); Neutrophil # 8.1 K/mm3 (1.3-6.0); Neutrophil % 78.5 % (42-75.0); Platelet Count 194 K/mm3 (150-450); Red Blood Count 4.28 M/mm3 (4.2-5.4); Red Cell Distribution Width 14.3 % (11.5-14.0); White Blood Count 10.3 K/mm3 (4.0-10.5)
[2019-02-24 10:24] LABS: Anion Gap 13.7 mmol/L (6.8-13.8); BUN/Creatinine Ratio 7.7 (9.0-21.6); Bilirubin, Total 0.3 mg/dL (0.0-1.1); Ca. Corrected For Albumin 7.2 mg/dL (8.4-10.2); Calcium * 6.7 mg/dL (7.9-10.9); Potassium 3.7 mmol/L (3.4-4.6); Total Protein 6.9 gm/dL (6.2-8.2)
--- NOTE | 2019-02-24 10:34 | PN ---
Progess Note - Interim Date: 02/24/19 Time: 10:33 Narrative: 02/24/19 10:33 All labs are stable, normal and improving with increasing platelet counts and decreasing liver enzymes. Magnesium level was 5 after the magnesium has been off for hours. Toxicity is expected at 7 so her symptoms likely indicate magnesium toxicity. Keep magnesium off and monitor blood pressures.
[2019-02-24] MEDS ORDERED: diphenhydrAMINE HCL 50 MG/ML VIAL IV ONE (11:12)
[2019-02-24] MEDS ORDERED: METOCLOPRAMIDE HCL 5 MG/ML VIAL IV PRN (11:12)
[2019-02-24] MEDS ORDERED: METOCLOPRAMIDE HCL 5 MG/ML VIAL IV ONE (11:12)
[2019-02-24] MEDS ORDERED: ACETAMINOPHEN 500 MG TABLET PO ONE (11:14)
[2019-02-24 14:10] VITALS: BP 128/82
--- NOTE | 2019-02-24 15:31 | DS ---
(1) Anxiety Problem: Acute (2) hypertension Problem: Acute (3) Headache Problem: Acute (4) Normal vaginal delivery Problem: Acute Description of Stay: The patient is a 33 year old who presented to the emergency department last night due to hypertension. She was observed for a few hours and she had several blood pressures very close to severe range blood pressures. She did have proteinuria but not in the pre-eclampsia range. Pre-eclampsia labs were unremarkable. She had a headache that did not resolve with tylenol. For these reasons she was given a 4 gram bolus of magnesium followed by administration of magnesium at 2 grams per hour. The magnesium was discontinued after 8 hours since the patient was hypotensive. A couple of hours after the discontinuation o f the magnesium she complained of double vision. A magnesium level was obtained and it was 5 which means it was much likely higher prior to discontinuation. In addition, pre-eclampsia labs were checked and all were normal. She received a gram of tylenol which did improve her headache. She was offered both reglan and benadryl several times for her headache but she declined because her headache was much improved. She now has an appetite and feels back to baseline. Severe pre-eclampsia precautions were given and she was instructed to follow-up with Dr. Hensley as scheduled on Tuesday Procedures Performed: none Results and Findings: Lab Pending Results 02/23/19 21:50: WBC 9.5, RBC 3.88 L, Hgb 12.4 L, Hct 37.5, MCV 96.6, MCH 32.0 H, MCHC 33.1, RDW 14.5 H, Plt Count 186, MPV 9.8, Immature Gran % (Auto) 0.90 H, Immature Gran # (Auto) 0.09 H, Neutrophils % 66.9, Lymphocytes % 25.4, Monocytes % 4.6, Eosinophils % 1.8, Basophils % 0.4, Nucleated RBC % 0.0, Neutrophils # 6.3 H, Lymphocytes # 2.41, Monocytes # 0.4, Eosinophils # 0.2, Absolute Basophils 0.0 02/23/19 21:50: Sodium 141, Plasma Sodium 141, Potassium 3.4, Chloride 105, Carbon Dioxide 26.3, Anion Gap 13.1, BUN 8 D, Creatinine 0.64, Est GFR (Non-Af Amer) 115, BUN/Creatinine Ratio 12.5, Random Glucose 84, Calcium 8.7, Calcium Ad j for Albumin 9.1, Total Bilirubin 0.2, AST 47, ALT 54, Alkaline Phosphatase 107, Total Protein 6.9, Albumin 3.1 L 02/23/19 22:10: Ur Random Creatinine 27.2 L, U Random Total Protein Less than 6.0, U [place] Prot/Creat Ratio 221 H 02/24/19 10:08: WBC 10.3, RBC 4.28, Hgb 13.6, Hct 40.8, MCV 95.3, MCH 31.8 H, MCHC 33.3, RDW 14.3 H, Plt Count 194, MPV 9.8, Immature Gran % (Auto) 0.40, Immature Gran # (Auto) 0.04 H, Neutrophils % 78.5 H, Lymphocytes % 16.4 L, Monocytes % 3.6, Eosinophils % 0.8, Basophils % 0.3, Nucleated RBC % 0.0, Neutrophils # 8.1 H, Lymphocytes # 1.69, Monocytes # 0.4, Eosinophils # 0.1, Absolute Basophils 0.0 02/24/19 10:08: Sodium 139, Plasma Sodium 139, Potassium 3.7, Chloride 104, Carbon Dioxide 25.0, Anion Gap 13.7, BUN 5, Creatinine 0.65, Est GFR (Non-Af Amer) 113, BUN/Creatinine Ratio 7.7 L, Random Glucose 96, Calcium 6.7 L, Calcium Adj for Albumin 7.2 L, Magnesium 5.0 H, Total Bilirubin 0.3, AST 42, ALT 50, Alkaline Phosphatase 108, Total Protein 6.9, Albumin 3.0 L Discharge Location: Home Disposition: Home self-care Condition: Good Discharge Activity: Activity as tolerated Discharge Diet: General/regular food Referrals: Korina Merino MD [Primary Care Provider] - Complete Home Medications List: Complete Home Medication List: rosfsiko-fcy-yqinj acid 200 mcg-herbal no.245 37.5 mg chewable tablet 2 tab PO DAILY tab 10/30/18 Acetaminophen [Tylenol] 650 mg PO PRN PRN 12/27/18 Metoprolol Tartrate [Lopressor] 6.25 mg PO BID tab 02/20/19 breast pump See Dose Instructions .ROUTE .MEDSUPPLY #1 ea 02/21/19
== END 2019-02-24 15:54 | disposition home or self-care (01) | DRG 776 ==
LOC: OB 20:57 → ER 20:57 → OB 21:42 → UNDODISIN 02-24 15:40
PROVIDERS: ADMIT Obstetrics & Gynecology; ATTEND Obstetrics & Gynecology
CPT/HCPCS: 36415; 80053; 82570; 83735; 84155; 84156; 85025; 99285